=== PATIENT | male | born 1995 | race Caucasian/White ===

== ENCOUNTER 2021-11-30 10:18 | Emergency (ER) | payer BC, OTHER ==
[~2021-11-30] VITALS: Ht 180.3 cm; Wt 151.2 kg
[2021-11-30 13:41] VITALS: BP 176/106
[2021-11-30 14:30] LABS: BASO # 0.1 10^3/uL (0.0-0.2); BASO % 1.1 % (0.0-1.0); EOS # 0.2 10^3/uL (0.0-0.5); EOS % 3.1 % (0.0-3.0); HEMATOCRIT 46.8 % (42.0-52.0); LYMPH # 2.1 10^3/uL (1.5-5.0); LYMPH % 33.3 % (24.0-44.0); MEAN CORPUSCULAR HEMOGLOBIN 30.5 pg (27.0-33.0); MEAN CORPUSCULAR HGB CONC 34.2 g/dl (32.0-36.5); MEAN CORPUSCULAR VOLUME 89.1 fl (80.0-96.0); MONO # 0.7 10^3/uL (0.0-0.8); MONO % 11.3 % (2.0-8.0); NEUTROPHILS # 3.2 10^3/uL (1.5-8.5); NEUTROPHILS % 50.9 % (36.0-66.0); PLATELET COUNT, AUTOMATED 333 10^3/uL (150-450); RED BLOOD COUNT 5.25 10^6/uL (4.30-6.10); WHITE BLOOD COUNT 6.2 10^3/uL (4.0-10.0)
[2021-11-30 14:53] LABS: ERYTHROCYTE SEDIMENTATION RATE 6 mm/hr (0-15)
[2021-11-30 14:55] LABS: C REACTIVE PROTEIN QUANTITATIV 0.69 MG/DL (0.00-0.30); MAGNESIUM LEVEL 2.3 MG/DL (1.8-2.4)
[2021-11-30 15:30] VITALS: BP 134/96
[2021-11-30] MEDS ORDERED: FUROSEMIDE 40 MG TAB PO ONE (15:35)
== END 2021-11-30 15:56 | disposition home or self-care (01) ==
LOC: M ED 10:18
DX: R22.43 Localized swelling, mass and lump, lower limb, bilateral (principal); I10 Essential (primary) hypertension; Z88.8 Allergy status to other drugs, medicaments and biological substances